=== PATIENT | male | born 1950 | race Native Hawaiian/Other Pacific Islander ===

== ENCOUNTER 2017-06-14 01:29 | Inpatient (IN) ==
[2017-06-14] MEDS ORDERED: Acetaminophen 325 MG TABLET PO PRN (05:18)
[2017-06-14] MEDS ORDERED: Ondansetron 4 MG/2 ML VIAL IVP PRN (05:18)
--- NOTE | 2017-06-14 05:32 | Internal Med History&Physical ---
<Orquidea Sadler - Last Filed: 06/14/17 05:23> Date of Encounter: 06/14/17 Time of Encounter: 05:00 Assessment and Plan (1) Sepsis Current visit: Yes Status: Acute - At least 2 SIRS criteria (WBC 21.1 at [facility] and HR 105 here). Lactic acid 1.2 at [facility]. - Likely secondary to prostatitis. - Continue IV fluid and antibiotic. - Closely monitor. Qualifiers: Sepsis type: sepsis due to unspecified organism Qualified Code(s): A41.9 - Sepsis, unspecified organism (2) Prostatitis Current visit: Yes Status: Acute - With leukocytosis and moderate to severely enlarged prostate per CT A/P at [facility]. - Start IV ceftriaxone. - Continue welch catheter. - Will consult urology and appreciate further evaluation and recommendations. Qualifiers: Prostatitis type: acute Qualified Code(s): N41.0 - Acute prostatitis (3) Acute urinary retention Current visit: Yes Status: Acute - Patient presented with complaint of "cannot urinate" requiring Welch catheter placed at [facility]. - Continue Welch. (4) Hypertension Current visit: Yes Status: Chronic - BP within normal range. - Continue home antihypertensive regimen. Qualifiers: Hypertension type: essential hypertension Qualified Code(s): I10 - Essential (primary) hypertension (5) Alcohol use Current visit: Yes Status: Chronic - Patient admits drinking 12-14 beers a week with last EtOH use three days ago. - Assess CIWA scale. (6) DVT prophylaxis Current visit: Yes Status: Acute Internal Medicine - H&P: HPI Chief complaint: Unable to urinate Admitted From: Emergency Dept (From [facility] ED) Plans for Post Hospital Care: Home History of present illness: Mr. Etienne is a 67 year old male with PMH of HTN and elevated PSA s/p prostate biopsy on 05/28/17. Patient presented to [facility] ED with complaint of "cannot urinate" for 2 days. It's associated with suprapubic and lower quadrant pressure -like pain, fever (temperature 100.2 at home) and chills. Patient denies nausea , vomiting, diarrhea, constipation, hematochezia, melena, chest pain, shortness of breath, cough. Patient denies history of UTI. Patient is full code. Medical record from [facility] was reviewed and showed WBC 21.1 and SCr 1.16. UA there found few RBC but minimal WBC and negative nitrite. CT A/P showed mildly distendede urinary bladder with moderate to severely enlarged prostate & seminal vesicles, suggestive of bladder outlet obstruction with differentials including prostatitis and BPH. No hydronephrosis noted. Welch catheter was placed and patient reports the abdominal pain improved. Patient received 2L of NS and one dose of IV levofloxacin before being transferred to [facility]. Past Med Surg Social Fam HX - Past Medical History Medical history: hypertension Psychiatric history: no psych history - Past Surgical History Surgical History: no surgical history, other (Prostate biopsy) - Social History Smoking Status: Former smoker Smokeless Tobacco Status: No Alcohol use: recent (12-14 beers per week. Last alcohol use was 3 days ago.) Drug use: none - Family History Father Adopted: [place]: [place] Family Member Ethnicity: Non- Living Status: Age at : 56 Cause of : Cancer Hx Family Cardiac Disorders: Yes ([place]) Hx Family Cancer: Yes (Stomach) Mother Hx Family Cancer: Yes (Bone cancer) Internal Medicine - H&P: Meds Sidney 5-40 mg Tablet 5 mg PO DAILY 06/14/17 [History] Allergies No Known Allergies Allergy (Verified 06/14/17 05:20) All Systems PM: A 10-system review of systems was performed and is negative for pertinent findings except as documented above in the HPI. - Constitutional Constitutional: chills, fever(s), no anorexia - EENT Eyes: no change in vision Ears: no decreased hearing Nose, mouth and throat: no dysphagia, no odynophagia - Cardiovascular Cardiovascular ROS IM: no chest pain, no lightheadedness, no syncope - Respiratory Respiratory: cough (Occasional dry cough), no dyspnea, no hemoptysis - Gastrointestinal Gastrointestinal: abdominal pain (Suprapubic and lower quadrants), no constipation, no diarrhea, no hematochezia, no melena, no nausea, no vomiting - Genitourinary Genitourinary ROS male: as per HPI, difficulty urinating - Integumentary Integumentary IM: no pruritus, no rash - Neurological Neurological ROS: no focal weakness, no numbness, no tingling - Hematologic/Lymphatic Hematologic/Lymphatic: no easy bleeding, no easy bruising - Constitutional Vitals: Temp Pulse Resp BP Pulse Ox 98.4 F 105 16 135/83 95 06/14/17 03:34 06/14/17 03:34 06/14/17 03:34 06/14/17 03:34 06/14/17 03:34 General appearance: Present: cooperative, A&O X 3, no acute distress, answers questions appropriately - Head Head exam: Present: atraumatic, normocephalic - Eye Eye exam: Present: EOMI, PERRL, conjuntiva pink, sclera anicteric - Neck Neck exam general surgery: Present: supple, trachea midline. Absent: lymphadenopathy - Respiratory Respiratory exam: Present: CTAB. Absent: accessory muscle use, rales, rhonchi, wheezes - Cardiovascular Cardiovascular exam: Present: RRR, +S1, +S2. Absent: diastolic murmur, gallop, rubs, systolic murmur - GI/Abdominal GI/Abdominal exam: Present: normal bowel sounds, soft, tenderness (Suprapubic), no peritoneal signs. Absent: distended - Extremities Exam Extremities exam: Present: warm, radial pulses palpable and symetrical. Absent : calf tenderness, cyanotic, pedal edema - Neurological Exam Neurological exam: Present: CN II-XII intact, oriented X3, no focal deficits. Absent: pronater drift, facial droop, speech deficit - Skin Skin exam: Present: dry, intact, warm <Mp Oliveira - Last Filed: 06/14/17 06:20> Date of Encounter: 06/14/17 Assessment and Plan (1) Lung nodules Current visit: Yes Status: Acute incidental findings of numerous non calcified subcentimeter lung nodules at the right lung base measuring up to [id number] , will need followup as outpatient per Fleischner society recommendations Internal Medicine - H&P: HPI History of present illness: Mr. Etienne is a 67 year old male All Systems PM: A 10-system review of systems was performed and is negative for pertinent findings except as documented above in the HPI. - Constitutional Vitals: Temp Pulse Resp BP Pulse Ox 98.4 F 105 16 135/83 95 06/14/17 03:34 06/14/17 03:34 06/14/17 03:34 06/14/17 03:34 06/14/17 03:34 - Additional comments: welch in place with straw colored urine-no blood or sediments noted Internal Med - H&P Results - Labs Labs: reviewed labs from [facility], significant findings worth noting; leucocytosis but normal renal function - Impressions reviewed report of CT abdomen and pelvis from [facility], significant findings; had distended urinary bladder, moderate to severely enlarged prostate gland, no hydronephrosis, He also had findings of numerous non calcified subcentimeter lung nodules at the right lung base measuring up to [id number] - Attending Attestation I personally interviewed and examined this patient and my medical decision- making was reviewed with the Resident Physician. I agree with the documented findings, disposition and treatment plan as described. Mp Oliveira MD, MPH Hospitalist
[2017-06-14] MEDS: 0.9 % Sodium Chloride 1,000 ML IVC SCH ×2 (05:42→15:48)
[2017-06-14] MEDS: *HR* Heparin 5,000 UNIT/ML VIAL SQ SCH ×3 (05:56→21:16)
--- NOTE | 2017-06-14 08:12 | Urology - Consult Note ---
Date of Encounter: 06/14/17 Time of Encounter: 08:09 - Assessment and Plan (1) Prostatitis Current Visit: Yes Status: Acute Assessment and plan: 67-year-old gentleman with a history of prostatitis and urinary retention after a prostate needle biopsy from May 25, 2017. He currently has an indwelling catheter. I recommend continuing the catheter for 1 week. I will start tamsulosin 0.4 mg daily. All side effects of medication were informed. We will await the results of the urine culture and blood cultures. We'll keep him as an inpatient for this infection until his white blood cell count is normalized. We will closely monitor for any worsening fevers. Qualifiers: Prostatitis type: acute Qualified Code(s): N41.0 - Acute prostatitis (2) Sepsis Current Visit: Yes Status: Acute Assessment and plan: 59-year-old man with concern for sepsis after prostate biopsy. We have started ceftriaxone. He is currently afebrile. We'll continue the ceftriaxone for now. We will repeat his CBC tomorrow morning. Continue inpatient stay for now. Qualifiers: Sepsis type: sepsis due to unspecified organism Qualified Code(s): A41.9 - Sepsis, unspecified organism Urology CN:HPI Consult date: 06/14/17 Requesting physician: Mp Oliveira History of present illness: 67-year-old man status post prostate needle biopsy from May 28, 2017 presented to [facility] with urinary retention. Initially, he had been unable to void and was seen at an urgent care where they performed a straight catheterization. He continued to have difficulty and was seen at [facility] and had a Plasencia catheter placed. He had an elevated white blood cell count and he was tachycardic at that time. Blood cultures and urine cultures were obtained. He had a CT scan which I have a report from. It showed evidence of BPH. He was then transferred to [facility] for further evaluation. Today he feels better. He has some mild discomfort associated the catheter, but it is draining well. Past Med Surg Social Fam HX - Past Medical History Medical history: hypertension Psychiatric history: no psych history - Past Surgical History Surgical History: no surgical history, other (Prostate biopsy) - Social History Smoking Status: Former smoker Smokeless Tobacco Status: No Alcohol use: recent (12-14 beers per week. Last alcohol use was 3 days ago.) Drug use: none - Family History Father Adopted: [place]: [place] Family Member Ethnicity: Non- Living Status: Age at : 56 Cause of : Cancer Hx Family Cardiac Disorders: Yes ([place]) Hx Family Cancer: Yes (Stomach) Mother Hx Family Cancer: Yes (Bone cancer) Medications and Allergies Amlodipine Bes/Olmesartan Med [Sidney 5-20 mg Tablet] 1 tab PO DAILY 06/14/17 [ History] Allergies No Known Allergies Allergy (Verified 06/14/17 05:20) Review of Systems - Constitutional fever(s), no chills - EENT Nose, mouth and throat: no dizziness - Cardiovascular no chest pain - Respiratory no dyspnea - Gastrointestinal no nausea, no vomiting - Genitourinary difficulty urinating, no flank pain, no hematuria - Musculoskeletal no back pain - Integumentary no erythema, no rash - Neurological no weakness - Psychiatric no suicidal ideation - Hematologic/Lymphatic no easy bleeding - Allergic/Immunologic no wheezing Exam Initial Vital Signs Temp Pulse Resp BP Pulse Ox 98.4 F 105 16 135/83 95 06/14/17 03:34 06/14/17 03:34 06/14/17 03:34 06/14/17 03:34 06/14/17 03:34 - General physical appearance Present: well developed, well nourished, no distress - Eyes Absent: icteric - ENT Present: normal nares - Neck Present: trachea midline - Respiratory Present: normal respiratory effort - Cardiovascular Cardiovascular exam IM: RRR - Abdomen Abdomen: Present: soft - Genitourinary normal penis with no external lesions, other (Catheter in place. Urine is clear.) Urology Results - Labs All other labs normal. - Imaging CT scan - abdomen: report reviewed CT scan - pelvis: report reviewed Consult Discharge Plan - Plan Referrals: Dimitrios Torres [Primary Care Provider] -
[2017-06-14] MEDS: AZOR PO SCH (09:09)
[2017-06-14 10:20] LABS: Basophils % 0.1 %; Hematocrit 37.1 % (37.5-50.1); Hemoglobin 12.9 g/dL (12.9-16.9); Immature Granulocytes % 0.6 % (0-4); Lymphocytes # 1.2 K/mcL (0.6-4.6); Lymphocytes % 6.8 %; Mean Corpuscular HGB Conc 34.8 g/dL (31.6-35.5); Mean Corpuscular Hemoglobin 29.7 pg (28.0-33.3); Mean Corpuscular Volume 85.5 fL (83.0-100.0); Mean Platelet Volume 10.8 fL (9.4-12.4); Monocytes # 1.4 K/mcL (0.0-1.3); Monocytes % 7.6 %; Neutrophils # 15.2 K/mcL (1.6-8.9); Platelet Count 144 K/mcL (140-400); Red Blood Count 4.34 M/mcL (4.19-5.50); Segmented Neutrophils % 84.9 %
[2017-06-14 10:34] LABS: BUN/Creatinine Ratio 13 (6-26); Blood Urea Nitrogen 14 mg/dL (8-26); Calcium 9.2 mg/dL (8.6-10.8); Carbon Dioxide 24 mEq/L (19-29); Chloride 109 mEq/L (98-109); Glucose 110 mg/dL (70-99); Osmolality,Calculated 293 (280-300); Potassium 3.6 mEq/L (3.5-4.5); Sodium 141 mEq/L (136-145); eGFR For African Americans > 60 (> 60); eGFR For Non-African Americans > 60 (> 60)
--- NOTE | 2017-06-14 11:16 | Internal Med Progress Note ---
<JamirImelda ring - Last Filed: 06/14/17 11:13> Date of Encounter: 06/14/17 Time of Encounter: 11:15 - Assessment and plan (1) Sepsis Current Visit: Yes Status: Acute Assessment and plan: Patient mets sepsis critera with elevated WBC (at [facility]) and HR Lactic acid 1.2 at [facility] source of infection likely secondary to prostatitis CT A/P at [facility] showed mildly distended urinary bladder with moderate to severely enlarged prostate and seminal vesicles, suggestive of bladder outlet obstruction. No hydronephrosis recent prostate needle biopsy on 05/25/17 Plan: continue IV fluids Ceftriaxone day 2 Appreciate urology recs Per urology: continue indwelling welch catheter for 1 week. Tamsulosin .4mg daily. do not see blood or urine cultures ordered here. will check if they were collected at [facility]. Qualifiers: Sepsis type: sepsis due to unspecified organism Qualified Code(s): A41.9 - Sepsis, unspecified organism (2) Pain of right great toe Current Visit: Yes Status: Acute Assessment and plan: will check uric acid levels. (3) Prostatitis Current Visit: Yes Status: Acute Assessment and plan: Plan as above Qualifiers: Prostatitis type: acute Qualified Code(s): N41.0 - Acute prostatitis (4) Acute urinary retention Current Visit: Yes Status: Acute Assessment and plan: Welch catheter placed at [facility]. Plan as #1 above (5) Hypertension Current Visit: Yes Status: Chronic Assessment and plan: BP within normal limits at this time. Plan: continue home medication Qualifiers: Hypertension type: essential hypertension Qualified Code(s): I10 - Essential (primary) hypertension (6) Alcohol use Current Visit: Yes Status: Chronic Assessment and plan: He admits to drinking 12-14 beers per week. CIWA scale in place (7) DVT prophylaxis Current Visit: Yes Status: Acute Assessment and plan: heparin SQ - Subjective Interval history: 67 year old male evaluated at bedside. Patient denies nausea, vomiting, diarrhea , fever, chills, chest pain, shortness of breath. Patient is complaining of some pain in his right great toe. He denies any further complaints today. - Constitutional Vitals: Temp Pulse Resp BP Pulse Ox 98.5 F 98 16 137/84 95 06/14/17 10:47 06/14/17 10:47 06/14/17 10:47 06/14/17 10:47 06/14/17 10:47 General appearance: Present: cooperative, A&O X 3, pleasant, no acute distress, answers questions appropriately - Head Head exam: Present: atraumatic, normocephalic - Neck Neck exam general surgery: Present: supple, trachea midline - Respiratory Respiratory exam: Present: CTAB - Cardiovascular Cardiovascular exam: Present: RRR, +S1, +S2 - GI/Abdominal GI/Abdominal exam: Present: normal bowel sounds, rigid. Absent: distended, tenderness - Extremities Exam Extremities exam: Absent: cyanotic, pedal edema - Back Exam Back exam: Absent: CVA tenderness (L), CVA tenderness (R) - Neurological Exam Neurological exam: Present: alert, oriented X3, no focal deficits - Psychiatric Psychiatric exam: Present: normal affect, normal mood - Skin Additional comments: right great toe mildly erythematous and painful upon palpation Internal Medicine: Result - Labs CBC & Chem 7: 06/14/17 10:13 06/14/17 10:13 Labs: Short CBC 06/14/17 Range/Units 10:13 WBC 18.0 H (4.3-11.1) K/mcL Hgb 12.9 (12.9-16.9) g/dL Hct 37.1 L (37.5-50.1) % Plt Count 144 (140-400) K/mcL Neutrophils # 15.2 H (1.6-8.9) K/mcL BMP 06/14/17 10:13 Sodium 141 Potassium 3.6 Chloride 109 Carbon Dioxide 24 BUN 14 Creatinine 1.08 Glucose 110 H Calcium 9.2 Consult Discharge Plan - Plan Referrals: Dimitrios Torres [Primary Care Provider] - 07/02/17 4:45 pm <Richard Neves - Last Filed: 06/14/17 17:35> Date of Encounter: 06/14/17 - Constitutional Vitals: Temp Pulse Resp BP Pulse Ox 98.4 F 100 16 145/78 97 06/14/17 15:07 06/14/17 15:07 06/14/17 15:07 06/14/17 15:07 06/14/17 15:07 Internal Medicine: Result - Labs CBC & Chem 7: 06/14/17 10:13 06/14/17 10:13 Labs: Short CBC 06/14/17 Range/Units 10:13 WBC 18.0 H (4.3-11.1) K/mcL Hgb 12.9 (12.9-16.9) g/dL Hct 37.1 L (37.5-50.1) % Plt Count 144 (140-400) K/mcL Neutrophils # 15.2 H (1.6-8.9) K/mcL BMP 06/14/17 10:13 Sodium 141 Potassium 3.6 Chloride 109 Carbon Dioxide 24 BUN 14 Creatinine 1.08 Glucose 110 H Calcium 9.2 - Attending Attestation I examined this patient and my medical decision-making was reviewed with the Resident Physician on 06/14/17. I agree with the documented findings, disposition and treatment plan as described except to the extent set forth below. Pt was admitted earlier this AM with sepsis related to acute prostatitis. He is on IV abx. He has been seen by urology. Exam Alert and comfortable. I/P 1. Acute sepsis 2. Acute prostatitis. Awaiting culture results. On IV abx.
--- NOTE | 2017-06-14 17:22 | Event Note ---
Date of Encounter: 06/14/17 Time of Encounter: 17:21 I called the [facility] microbiology department . Blood cultures are currently negative and urine culture was plated at 0900 this morning. Will reassess tomorrow.
[2017-06-15] MEDS: 0.9 % Sodium Chloride 1,000 ML IVC SCH (01:59)
[2017-06-15] MEDS: *HR* Heparin 5,000 UNIT/ML VIAL SQ SCH (05:54)
[2017-06-15 07:37] VITALS: BP 141/92
--- NOTE | 2017-06-15 07:48 | Discharge Summary ---
<Eric Trevino - Last Filed: 06/15/17 09:36> Date of Encounter: 06/15/17 Time of Encounter: 07:46 - Discharge Medications Prescriptions: Cefdinir [Omnicef] 300 mg PO BID #20 capsule Tamsulosin [Flomax] 0.4 mg PO DAILY #30 Home Medications: Amlodipine Bes/Olmesartan Med [Sidney 5-20 mg Tablet] 1 tab PO DAILY 06/14/17 [ History] Cefdinir [Omnicef] 300 mg PO BID #20 capsule 06/15/17 [Rx] Tamsulosin [Flomax] 0.4 mg PO DAILY #30 06/15/17 [Rx] Allergies/Adverse Reactions: Allergies No Known Allergies Allergy (Verified 06/14/17 05:20) Date of admission: 06/14/17 05:16 Primary care physician: Dimitrios Torres Consults: 06/14/17 05:20 Consult to Urology [CONS] Routine Consulting Provider: Urology Gilda Reason for Consult: Recent prostate biopsy for elevated PSA. Admitted for prostatitis. Appreicate urology input. ED physician from [facility] had discussed the case with Dr. Cannon. Call Completed: Yes Discharging clinician: Eric Trevino Anticipated date of discharge: 06/15/17 - Patient Status Disposition: Home, Self-Care Condition: Good Functional capacity at discharge: independent ambulation Overall status at discharge: patient is progressing back to baseline - Discharge Instructions Instructions: Sepsis (DC), Chronic Hypertension (DC) Follow Up With: Porfirio Reynolds MD [Partnered Physician] - (This week for a voiding trial. appointment web requested. Office to contact patient at home to schedule appointment. ) Dimitrios Torres [Primary Care Provider] - 07/02/17 4:45 pm Additional Instructions: Please report to your PCP within a week. Please see the urologist as scheduled for maintenance of the catheter. - Diet and Activity Activity: increase activity as tolerated Diet: regular diet Interval History: Pt seen and examined. He has no complaints this morning other than discomfort from the catheter and a sore back when he lays for too long. No chest pain, shortness of breath, fever, diarrhea, nausea, vomiting. Hospital course: Mr. Etienne is a 67 year old male who presents with prostatitis s/p prostate biopsy in May 28 2017. He could not urinate for 2 days and felt suprapubic pain and had a mild fever. He went to [facility] where he had a white count but urinalysis was negative. He was transferred to [facility] after receiving a dose of Levaquin. Urology was consulted and recommended to continue his indwelling catheter for a 1 week period and started him Flomax. Patient remained asymptomatic during his stay here other than mild back pain and discomfort after being in bed for too long and having the catheter in. Upon discharge, blood and urine cultures remained negative at [facility] and he will go home with 10 days of Cefdinir and Flomax as well, as recommended by urology. He will have close follow up with them and also his PCP within a week. - Time Spent with Patient Total time spent providing and/or coordinating discharge services: Greater than 30 minutes - Constitutional Vitals: Temp Pulse Resp BP Pulse Ox 98.6 F 94 16 141/92 94 06/15/17 07:36 06/15/17 07:36 06/15/17 07:36 06/15/17 07:36 06/15/17 07:36 General appearance: Present: cooperative, pleasant, no acute distress, answers questions appropriately - Head Head exam: Present: atraumatic, normocephalic - Eye Eye exam: Present: PERRL, conjuntiva pink, sclera anicteric - Neck Neck exam general surgery: Present: supple, trachea midline. Absent: lymphadenopathy - Respiratory Respiratory exam: Present: CTAB. Absent: accessory muscle use, rales, rhonchi, wheezes - Cardiovascular Cardiovascular exam: Present: RRR, +S1, +S2. Absent: diastolic murmur, gallop, rubs, systolic murmur - GI/Abdominal GI/Abdominal exam: Present: normal bowel sounds, soft, no peritoneal signs. Absent: distended, tenderness - Extremities Exam Extremities exam: Present: warm, radial pulses palpable and symetrical. Absent : calf tenderness, cyanotic, pedal edema - Neurological Exam Neurological exam: Present: alert, no focal deficits. Absent: facial droop, speech deficit - Skin Skin exam: Present: dry, intact <Richard Neves - Last Filed: 06/15/17 14:02> Date of Encounter: 06/15/17 - Discharge Diagnosis (1) Sepsis Priority: Primary Status: Resolved Qualifiers: Sepsis type: sepsis due to unspecified organism Qualified Code(s): A41.9 - Sepsis, unspecified organism (2) Prostatitis Priority: Primary Status: Acute Qualifiers: Prostatitis type: acute Qualified Code(s): N41.0 - Acute prostatitis (3) Acute urinary retention Priority: Secondary Status: Acute (4) Hypertension Priority: Secondary Status: Chronic Qualifiers: Hypertension type: essential hypertension Qualified Code(s): I10 - Essential (primary) hypertension (5) Pain of right great toe Priority: Secondary Status: Chronic (6) Alcohol use Priority: Secondary Status: Chronic Date of admission: 06/14/17 05:16 Primary care physician: Dimitrios Torres Consults: 06/14/17 05:20 Consult to Urology [CONS] Routine Consulting Provider: Urology Gilda Reason for Consult: Recent prostate biopsy for elevated PSA. Admitted for prostatitis. Appreicate urology input. ED physician from [facility] had discussed the case with Dr. Cannon. Call Completed: Yes Hospital course: Mr. Etienne is a 67 year old male - Time Spent with Patient Total time spent providing and/or coordinating discharge services: 36min - Constitutional Vitals: Temp Pulse Resp BP Pulse Ox 98.6 F 94 16 141/92 94 06/15/17 07:36 06/15/17 07:36 06/15/17 07:36 06/15/17 07:36 06/15/17 07:36 - Attending Attestation I examined this patient and my medical decision-making was reviewed with the Resident Physician on 06/15/17. I agree with the documented findings, disposition and treatment plan as described except to the extent set forth below. Mr. Etienne had been admitted with prostatitis. He is s/p prostate biopsy. Currently his only complaint is low back pain from lying in bed. He is afebrile and vitals are stable. He is ready for discharge home. Exam Alert. Comfortable. Mucus membranes moist Heart reg No wheeze Abd soft No edema Plan D/C home today 10 days of abx Follow up with urology and PCP.
--- NOTE | 2017-06-15 08:18 | Urology Progress Note ---
Date of Encounter: 06/15/17 Time of Encounter: 08:16 - Assessment and Plan (1) Prostatitis Current Visit: Yes Status: Acute Assessment and plan: No fevers or chills overnight. Cultures have been negative. Recommend to transition to cefdinir 300mg PO BID x 10 days upon discharge. He can follow up in Dr. Reynolds's office in 1 week for a voiding trial. Continue tamsulosin 0.4mg po daily upon discharge. Qualifiers: Prostatitis type: acute Qualified Code(s): N41.0 - Acute prostatitis (2) Sepsis Current Visit: Yes Status: Acute Qualifiers: Sepsis type: sepsis due to unspecified organism Qualified Code(s): A41.9 - Sepsis, unspecified organism Progress Note Narrative: Doing well. No fevers overnight. I called [facility]. Urine culture was negative. Blood culture has been negative. Objective Initial Vital Signs Temp Pulse Resp BP Pulse Ox 98.4 F 105 16 135/83 95 06/14/17 03:34 06/14/17 03:34 06/14/17 03:34 06/14/17 03:34 06/14/17 03:34 - General physical appearance Present: well developed, well nourished, no distress - Respiratory Present: normal respiratory effort - Abdomen Present: soft - Genitourinary Present: normal penis with no external lesions Urine Appearance: Present: Clear - Labs 06/14/17 10:13 06/14/17 10:13 Diabetes panel 06/14/17 Range/Units 10:13 Sodium 141 (136-145) mEq/L Potassium 3.6 (3.5-4.5) mEq/L Chloride 109 (98-109) mEq/L Carbon Dioxide 24 (19-29) mEq/L BUN 14 (8-26) mg/dL Creatinine 1.08 (0.72-1.25) mg/dL Glucose 110 H (70-99) mg/dL Calcium 9.2 (8.6-10.8) mg/dL Calcium panel 06/14/17 Range/Units 10:13 Calcium 9.2 (8.6-10.8) mg/dL Pituitary panel 06/14/17 Range/Units 10:13 Sodium 141 (136-145) mEq/L Potassium 3.6 (3.5-4.5) mEq/L Chloride 109 (98-109) mEq/L Carbon Dioxide 24 (19-29) mEq/L BUN 14 (8-26) mg/dL Creatinine 1.08 (0.72-1.25) mg/dL Glucose 110 H (70-99) mg/dL Calcium 9.2 (8.6-10.8) mg/dL Adrenal panel 06/14/17 Range/Units 10:13 Sodium 141 (136-145) mEq/L Potassium 3.6 (3.5-4.5) mEq/L Chloride 109 (98-109) mEq/L Carbon Dioxide 24 (19-29) mEq/L BUN 14 (8-26) mg/dL Creatinine 1.08 (0.72-1.25) mg/dL Glucose 110 H (70-99) mg/dL Calcium 9.2 (8.6-10.8) mg/dL Consult Discharge Plan - Plan Referrals: Dimitrios Torres [Primary Care Provider] - 07/02/17 4:45 pm Porfirio Reynolds MD [Partnered Physician] - (This week for a voiding trial.)
[2017-06-15 08:36] LABS: Basophils % 0.2 %; Eosinophils % 0.2 %; Hematocrit 37.9 % (37.5-50.1); Hemoglobin 12.9 g/dL (12.9-16.9); Immature Granulocytes % 0.5 % (0-4); Lymphocytes # 1.3 K/mcL (0.6-4.6); Lymphocytes % 9.8 %; Mean Corpuscular Hemoglobin 29.2 pg (28.0-33.3); Mean Corpuscular Volume 85.7 fL (83.0-100.0); Mean Platelet Volume 11.4 fL (9.4-12.4); Monocytes # 1.2 K/mcL (0.0-1.3); Neutrophils # 10.4 K/mcL (1.6-8.9); Platelet Count 141 K/mcL (140-400); Red Blood Count 4.42 M/mcL (4.19-5.50); Red Cell Distribution Width 13.9 % (11.5-14.5); Segmented Neutrophils % 80.3 %
[2017-06-15 08:50] LABS: BUN/Creatinine Ratio 12 (6-26); Blood Urea Nitrogen 12 mg/dL (8-26); Calcium 8.7 mg/dL (8.6-10.8); Carbon Dioxide 24 mEq/L (19-29); Chloride 106 mEq/L (98-109); Glucose 101 mg/dL (70-99); Osmolality,Calculated 286 (280-300); Potassium 3.4 mEq/L (3.5-4.5); Sodium 138 mEq/L (136-145); eGFR For African Americans > 60 (> 60); eGFR For Non-African Americans > 60 (> 60)
[2017-06-15] MEDS: AZOR PO SCH (09:09)
== END 2017-06-15 11:23 | disposition home or self-care (01) | DRG 872 ==
LOC: 3BNU → SUATTDRO 05:16
PROVIDERS: ADMIT Hospitalist; ATTEND Internal Medicine